=== PATIENT | female | born 1995 | race Caucasian/White ===

== ENCOUNTER 2021-02-15 12:19 | Emergency (ER) | payer BC, OTHER ==
[2021-02-15 12:55] VITALS: BP 110/61; PULSE 88; TEMP 97.8; BMI 35.9
[2021-02-17 02:06] LABS: SARS-CoV-2 NAA Not Detected (Not Detected)
== END 2021-02-15 14:40 | disposition home or self-care (01) ==
LOC: JER 12:19
DX: R51.9 Headache, unspecified (principal); R05.1 Acute cough; R09.81 Nasal congestion
CPT/HCPCS: 99283-25; C9803-CS; U0003; U0005

== ENCOUNTER 2023-06-12 13:19 | Emergency (ER) | payer OTHER ==
[2023-06-12 14:07] VITALS: RESP 17; BMI 41.3
[2023-06-12 15:36] LABS: BASO % 0.2 % (0-2.0); EOS % 0.7 % (0-4.5); HEMATOCRIT 35.6 % (32.4-45.2); HEMOGLOBIN 11.9 GM/dL (10.7-15.3); MCH 29.4 pg (25.7-33.7); MCHC 33.3 g/dl (32.0-36.0); MEAN CELL VOLUME 88.2 fl (80-96); MEAN PLT VOLUME 9.2 fl (7.5-11.1); MONO % 4.3 % (3.8-10.2); NEUT % 82.8 % (42.8-82.8); PLATELET COUNT 254 10^3/uL (134-434); RBC 4.03 M/mm3 (3.60-5.2); RDW 13.8 % (11.6-15.6); WHITE BLOOD COUNT 15.9 K/mm3 (4.0-10.0)
[2023-06-12] MEDS: SODIUM CHLORIDE 1,000 ML IV STA (15:54)
[2023-06-12 15:57] LABS: ALBUMIN 2.8 g/dl (3.4-5.0); CALCIUM 8.8 mg/dL (8.5-10.1); MAGNESIUM 1.9 mg/dL (1.8-2.4)
[2023-06-12 15:58] LABS: BLOOD UREA NITROGEN 8.1 mg/dL (7-18)
[2023-06-12 16:00] LABS: CREATININE 0.6 mg/dL (0.55-1.3)
[2023-06-12 16:02] LABS: BILIRUBIN,TOTAL 0.4 mg/dL (0.2-1); TOT PROT 6.7 g/dl (6.4-8.2)
[2023-06-12 17:13] LABS: PH,URINE 5.5 (5.0-8.0); URINE APPEARANCE CLEAR; URINE BILIRUBIN NEGATIVE (NEGATIVE); URINE COLOR YELLOW; URINE GLUCOSE (UA) NEGATIVE (NEGATIVE); URINE KETONE 3+ (NEGATIVE); URINE LEUK ESTERASE NEGATIVE (NEGATIVE); URINE NITRITE NEGATIVE (NEGATIVE); URINE PROTEIN TRACE (NEGATIVE); URINE UROBILINOGEN 0.2 mg/dL (0.2-1.0)
[2023-06-12 18:50] VITALS: BP 146/77; PULSE 108; TEMP 98
== END 2023-06-12 19:14 | disposition left against medical advice (07) ==
LOC: JER 13:19
PROC: 3E0337Z Introduction of Electrolytic and Water Balance Substance into Peripheral Vein, Percutaneous Approach (ICD-10-PCS; principal; 2023-06-12)
DX: O26.892 Other specified pregnancy related conditions, second trimester (principal); R10.9 Unspecified abdominal pain; R00.0 Tachycardia, unspecified; Z3A.28 28 weeks gestation of pregnancy; Z20.822 Contact with and (suspected) exposure to COVID-19
CPT/HCPCS: 0241U-QW; 36415; 76705-TC; 80053; 81003; 83735; 84439; 84443; 84484; 85025; 87086; 93005; 93010; 93970-TC; 99285-25

== ENCOUNTER 2023-08-27 18:30 | Inpatient (IN) | payer OTHER ==
[2023-08-27 20:11] VITALS: BMI 43.2
[2023-08-27 20:38] LABS: BASO % 0.2 % (0-2.0); EOS % 0.7 % (0-4.5); LYMPH % 13.1 % (8-40); MCH 26.6 pg (25.7-33.7); MCHC 32.4 g/dl (32.0-36.0); MEAN CELL VOLUME 81.9 fl (80-96); MEAN PLT VOLUME 9.7 fl (7.5-11.1); MONO % 5.4 % (3.8-10.2); NEUT % 80.6 % (42.8-82.8); PLATELET COUNT 252 10^3/uL (134-434); RBC 4.15 M/mm3 (3.60-5.2); RDW 15.1 % (11.6-15.6); WHITE BLOOD COUNT 13.7 K/mm3 (4.0-10.0)
[2023-08-27 20:42] LABS: INR 0.96 (0.83-1.09); PROTHROMBIN TIME (PATIENT) 11.1 SEC (9.7-13.0)
[2023-08-27 20:45] LABS: ACTIVATED PTT 24.7 SECONDS (25.2-36.5)
[2023-08-27 20:59] LABS: POTASSIUM 3.7 mmol/L (3.5-5.1)
[2023-08-27 21:03] LABS: BLOOD UREA NITROGEN 8.8 mg/dL (7-18)
[2023-08-27 21:06] LABS: CREATININE 0.6 mg/dL (0.55-1.3)
[2023-08-27] MEDS: DINOPROSTONE 10 MG VAGINAL SUPPOSITORY VG ONE (22:20)
[2023-08-27] MEDS: ELECTROLYTE-148 SOLN 1,000 ML IV SCH (23:20)
[2023-08-28] MEDS ORDERED: OXYTOCIN 30 UNITS in 0.9% NS 30 UNIT/500 ML INFUS.BAG IVPB ONE (10:26)
[2023-08-28] MEDS: OXYTOCIN 30 UNITS in 0.9% NS 30 UNIT/500 ML INFUS.BAG IVPB SCH (11:28)
[2023-08-28] MEDS ORDERED: FENTANYL/BUPIVACAINE/NS/PF - PCEA - 50 ML DISP.SYRIN EP ONE ×2 (17:23→21:25)
[2023-08-28] MEDS ORDERED: AMPICILLIN SODIUM 2 GM VIAL ONE (18:12)
[2023-08-28] MEDS: AMPICILLIN - 2 GM in SODIUM CHLORIDE 100 ML IVPB ONE (18:15)
[2023-08-28] MEDS ORDERED: NALOXONE HCL 0.4 MG/ML VIAL IVPUSH PRN (18:30)
[2023-08-28] MEDS ORDERED: METOCLOPRAMIDE HCL INJECTION 10 MG/2 ML VIAL ONE (22:11)
[2023-08-28] MEDS ORDERED: ceFAZolin SODIUM 1 GM VIAL ONE (22:11)
[2023-08-28] MEDS ORDERED: PHENYLEPHRINE HCL 10 MG/1 ML SINGLE DOSE VIAL ONE (22:11)
[2023-08-28] MEDS ORDERED: ONDANSETRON 4 MG/2 ML VIAL ONE (22:11)
[2023-08-28] MEDS ORDERED: FENTANYL CITRATE/PF 50 MCG/ML VIAL ONE (22:12)
[2023-08-28] MEDS ORDERED: LIDO 2%/EPI 1:200000 PRESRVFRE (20 ML SDVIAL) ONE (22:18)
[2023-08-28] MEDS: CITRIC ACID/SODIUM CITRATE 30 ML UNIT-DOSE CUP PO ONE (22:30)
[2023-08-28] MEDS ORDERED: OXYTOCIN 10 UNITS/ML VIAL ONE (22:52)
[2023-08-28] MEDS ORDERED: KETOROLAC TROMETHAMINE 30 MG/1 ML VIAL ONE (23:37)
[2023-08-28 23:53] LABS: CORD BASE EXCESS -4.1 mmol/L (0-2); CORD PCO2 43.8 mmHg (30-78); CORD pH 7.319 (7.14-7.44)
[2023-08-28 23:54] LABS: CORD HCO3 23.5 mmHg (20-29); CORD PCO2 55.2 mmHg (30-78); CORD pH 7.247 (7.14-7.44)
[2023-08-28] MEDS ORDERED: WITCH HAZEL 50% (TUCKS) 40 PAD/JAR PAD TP PRN (23:59)
[2023-08-28] MEDS ORDERED: METHYLERGONOVINE MALEATE 0.2 MG/1 ML AMP IM PRN (23:59)
[2023-08-28] MEDS ORDERED: BENZOCAINE 20% 57 GM BOTTLE TP PRN (23:59)
[2023-08-29] MEDS ORDERED: ONDANSETRON 4 MG/2 ML VIAL IVPUSH PRN (00:22)
[2023-08-29] MEDS: OXYTOCIN 20 UNITS in 0.9% NS 20 UNIT/1,000 ML INFUS.BAG IV SCH (01:50)
[2023-08-29] MEDS ORDERED: OXYTOCIN 20 UNITS in 0.9% NS 20 UNIT/1,000 ML INFUS.BAG IV ONE (01:56)
[2023-08-29] MEDS: FENTANYL/BUPIVACAINE/NS/PF - PCEA - 50 ML DISP.SYRIN EP SCH (03:30)
[2023-08-29] MEDS: morphine SULFATE/PF 1 MG/2 ML (2cc Syringe - QUVA) EP ONE (03:31)
[2023-08-29] MEDS: AMPICILLIN - 1 GM in SODIUM CHLORIDE 100 ML IVPB SCH (03:33)
[2023-08-29] MEDS: PROMETHAZINE HCL 25 MG/1 ML VIAL IVPB ONE (03:34)
[2023-08-29] MEDS: BUTORPHANOL TARTRATE 2 MG/ML VIAL IVPB ONE (03:34)
[2023-08-29] MEDS: CEFAZOLIN 1 GM in DEXTROSE 5%-WATER - 50 ML IVPB SCH (03:39)
[2023-08-29 09:35] LABS: BASO % 0.2 % (0-2.0); EOS % 0.1 % (0-4.5); HEMATOCRIT 31.6 % (32.4-45.2); HEMOGLOBIN 10.4 GM/dL (10.7-15.3); LYMPH % 11.3 % (8-40); MCH 27.1 pg (25.7-33.7); MCHC 32.7 g/dl (32.0-36.0); MEAN CELL VOLUME 82.7 fl (80-96); MEAN PLT VOLUME 10.3 fl (7.5-11.1); MONO % 6.7 % (3.8-10.2); NEUT % 81.7 % (42.8-82.8); PLATELET COUNT 198 10^3/uL (134-434); RBC 3.82 M/mm3 (3.60-5.2); RDW 15.3 % (11.6-15.6); WHITE BLOOD COUNT 13.1 K/mm3 (4.0-10.0)
[2023-08-29] MEDS: PRENATAL VITAMINS W/ FOLIC ACID TABLET (FP) PO SCH (10:00)
[2023-08-29] MEDS: ENOXAPARIN NA (PORCINE) 40 MG/0.4 ML DISP.SYRIN SQ SCH (10:00)
[2023-08-29] MEDS ORDERED: oxyCODONE HCL 5 MG TABLET PO PRN ×2 (11:59)
[2023-08-29] MEDS: IBUPROFEN 800 MG/8 ML IJ IVPB PRN (14:32)
[2023-08-29] MEDS: SIMETHICONE 80 MG TAB.CHEW (FP) PO PRN (23:12)
[2023-08-29] MEDS: ACETAMINOPHEN 325 MG TABLET (FP) PO PRN (23:12)
[2023-08-29] MEDS: CEPHALEXIN MONOHYDRATE 500 MG CAPSULE (UD) PO SCH (23:12)
[2023-08-29] MEDS ORDERED: BISACODYL 10 MG SUPP.RECT RC PRN (23:59)
[2023-08-30] MEDS: IBUPROFEN 600 MG TABLET (FP) PO PRN (12:20)
[2023-08-30 21:17] LABS: BASO % 0.1 % (0-2.0); EOS % 2.4 % (0-4.5); HEMATOCRIT 37.6 % (32.4-45.2); HEMOGLOBIN 12.4 GM/dL (10.7-15.3); LYMPH % 15.2 % (8-40); MCH 27.8 pg (25.7-33.7); MCHC 32.9 g/dl (32.0-36.0); MEAN CELL VOLUME 84.5 fl (80-96); MEAN PLT VOLUME 9.6 fl (7.5-11.1); MONO % 5.8 % (3.8-10.2); NEUT % 76.5 % (42.8-82.8); PLATELET COUNT 295 10^3/uL (134-434); RBC 4.45 M/mm3 (3.60-5.2); RDW 15.1 % (11.6-15.6); WHITE BLOOD COUNT 11.2 K/mm3 (4.0-10.0)
[2023-08-30 21:38] LABS: POTASSIUM 3.8 mmol/L (3.5-5.1)
[2023-08-30 21:40] LABS: CALCIUM 8.9 mg/dL (8.5-10.1)
[2023-08-30 21:41] LABS: ALBUMIN 2.9 g/dl (3.4-5.0); BLOOD UREA NITROGEN 9.7 mg/dL (7-18)
[2023-08-30 21:44] LABS: CREATININE 0.8 mg/dL (0.55-1.3)
[2023-08-30 21:46] LABS: BILIRUBIN,TOTAL 0.3 mg/dL (0.2-1); TOT PROT 6.5 g/dl (6.4-8.2)
[2023-08-31 06:50] LABS: BASO % 0.1 % (0-2.0); HEMATOCRIT 33.5 % (32.4-45.2); HEMOGLOBIN 10.7 GM/dL (10.7-15.3); LYMPH % 23.2 % (8-40); MCH 26.7 pg (25.7-33.7); MEAN CELL VOLUME 83.6 fl (80-96); MEAN PLT VOLUME 9.1 fl (7.5-11.1); NEUT % 65.7 % (42.8-82.8); PLATELET COUNT 247 10^3/uL (134-434); RBC 4.01 M/mm3 (3.60-5.2); RDW 15.4 % (11.6-15.6); WHITE BLOOD COUNT 7.8 K/mm3 (4.0-10.0)
[2023-08-31 09:33] VITALS: BP 116/74; PULSE 107; RESP 18; TEMP 97.7
== END 2023-08-31 14:30 | disposition home or self-care (01) | DRG 788 ==
LOC: JLDR 18:30 → J3W 08-29 02:20
PROVIDERS: ADMIT Obstetrics & Gynecology; ATTEND Obstetrics & Gynecology
PROC: 3E0P7VZ Introduction of Hormone into Female Reproductive, Via Natural or Artificial Opening (ICD-10-PCS; 2023-08-27)
PROC: 10D00Z1 Extraction of Products of Conception, Low, Open Approach (ICD-10-PCS; principal; 2023-08-28)
DX: O99.824 Streptococcus B carrier state complicating childbirth (principal); O62.0 Primary inadequate contractions; O36.63X0 Maternal care for excessive fetal growth, third trimester, not applicable or unspecified; O99.893 Other specified diseases and conditions complicating puerperium; Z3A.38 38 weeks gestation of pregnancy; Z37.0 Single live birth
CPT/HCPCS: 36415; 36600; 71046-TC-FY; 80048; 80053; 82803; 84443; 85025; 85610; 85730; 86780; 86850; 86900; 86901; 88307-TC; 93005; 93010; 93306-TC; 94010

== ENCOUNTER 2023-09-19 08:16 | Emergency (ER) | payer OTHER ==
[2023-09-19 08:34] VITALS: RESP 19; BMI 39.4
[2023-09-19 09:52] LABS: BASO % 0.3 % (0-2.0); EOS % 0.7 % (0-4.5); HEMATOCRIT 38.9 % (32.4-45.2); HEMOGLOBIN 12.5 GM/dL (10.7-15.3); LYMPH % 13.5 % (8-40); MCH 27.1 pg (25.7-33.7); MCHC 32.1 g/dl (32.0-36.0); MEAN CELL VOLUME 84.3 fl (80-96); MEAN PLT VOLUME 9.7 fl (7.5-11.1); MONO % 5.5 % (3.8-10.2); PLATELET COUNT 300 10^3/uL (134-434); RBC 4.61 M/mm3 (3.60-5.2); RDW 16.2 % (11.6-15.6); WHITE BLOOD COUNT 9.5 K/mm3 (4.0-10.0)
[2023-09-19 10:01] LABS: INR 1.01 (0.83-1.09); PROTHROMBIN TIME (PATIENT) 11.6 SEC (9.7-13.0)
[2023-09-19 10:04] LABS: ACTIVATED PTT 29.7 SECONDS (25.2-36.5)
[2023-09-19 10:18] LABS: POTASSIUM 4.1 mmol/L (3.5-5.1)
[2023-09-19 10:22] LABS: ALBUMIN 3.9 g/dl (3.4-5.0); BLOOD UREA NITROGEN 20.5 mg/dL (7-18); MAGNESIUM 1.8 mg/dL (1.8-2.4)
[2023-09-19 10:25] LABS: CREATININE 0.8 mg/dL (0.55-1.3)
[2023-09-19 10:26] LABS: TOT PROT 7.6 g/dl (6.4-8.2)
[2023-09-19 10:27] LABS: BILIRUBIN,TOTAL 0.7 mg/dL (0.2-1)
[2023-09-19 13:03] VITALS: BP 122/78; PULSE 82; TEMP 97.9
== END 2023-09-19 13:15 | disposition home or self-care (01) ==
LOC: JER 08:16
DX: R07.2 Precordial pain (principal); I31.39 Other pericardial effusion (noninflammatory); M79.89 Other specified soft tissue disorders; Z20.822 Contact with and (suspected) exposure to COVID-19
CPT/HCPCS: 0241U-QW; 36415; 71045-TC-FY; 71275-TC; 80053; 83735; 84484; 85025; 85379; 85610; 85730; 93005; 93010; 99285-25; Q9967

== ENCOUNTER 2023-10-14 21:49 | Emergency (ER) | payer OTHER ==
[2023-10-14 22:07] VITALS: BP 134/72; PULSE 94; RESP 18; TEMP 98.4; BMI 38.1
[2023-10-14] MEDS ORDERED: MAG HYDROX/AL HYDROX/SIMETH 30 ML UNIT-DOSE CUP PO ONE (22:52)
[2023-10-14] MEDS ORDERED: FAMOTIDINE 20 MG TABLET PO ONE (22:52)
[2023-10-14] MEDS ORDERED: SUCRALFATE 1 GM TABLET (FP) PO ONE (23:00)
[2023-10-14] MEDS ORDERED: SUCRALFATE 1 GM TABLET (FP) ONE (23:15)
[2023-10-14] MEDS ORDERED: FAMOTIDINE 20 MG TABLET ONE (23:15)
[2023-10-14] MEDS ORDERED: MAG HYDROX/AL HYDROX/SIMETH 30 ML UNIT-DOSE CUP ONE (23:15)
== END 2023-10-15 00:26 | disposition left against medical advice (07) ==
LOC: JER 21:49
DX: R07.81 Pleurodynia (principal)
CPT/HCPCS: 93005; 93010; 99284-25